=== PATIENT | male | born 1960 | race Caucasian/White ===

== ENCOUNTER 2021-06-09 10:03 | Emergency (ER) | payer OTHER, SELFPAY ==
[2021-06-09 10:39] VITALS: BP 146/81; PULSE 65; RESP 18; TEMP 36.5; O2SAT 98
--- NOTE | 2021-06-09 11:17 | ED.GENADULT ---
HPI - General Adult General Chief complaint: Ear Stated complaint: discomfort and swelling lt side of face Time Seen by Provider: 06/09/21 11:17 Source: patient, RN notes reviewed and old records reviewed Mode of arrival: ambulatory Limitations: no limitations History of Present Illness HPI narrative: 60-year-old male presents to [facility] with complaints of swelling and some redness to the left side of his face in front of his left ear down to edge of jaw and to tonsillar lymph node. Patient denies any pain to his left ear or any dental pain. Patient has swelling noted orally top of the posterior molar gum region and surrounding tissue down to bottom most posterior molar with no drainage noted, no Marcela angina or any difficulty with swallowing or breathing noted. Patient has no obvious dental carries in his left molars but has some crowns on top back posterior molars. Onset (ago): day(s) (1) Location: face and left Related Data Allergies Allergy/AdvReac Type Severity Reaction Status Date / Time No Known Allergies Allergy Verified 06/09/21 10:49 Review of Systems Review of Systems: CONSTITUTIONAL: Denies fever, chills, or sweats. EYES: Denies visual changes, redness, or discharge. ENT: Denies rhinorrhea, congestion, sore throat, or otalgia, swelling to the left side of his face in front of his left ear down to tonsillar lymph node CARDIOVASCULAR: Denies chest pain, palpitations, or edema. RESPIRATORY: Denies cough or dyspnea. GASTROINTESTINAL: Denies abdominal pain, nausea, vomiting, or diarrhea. GENITOURINARY: Denies dysuria or hematuria. SKIN: Denies rash or itching. MUSCULOSKELETAL: Denies back pain, joint pain, or myalgia. NEUROLOGIC: Denies headache, numbness, or weakness. PSYCHIATRIC: Denies anxiety or depression. All systems reviewed & are unremarkable except as noted in HPI and below PMFSH Surgical History Surgical History (Updated 06/09/21 @ 11:53 by Zoraida Jessica NP) H/O vasectomy Family History Family History (Updated 06/09/21 @ 18:46 by Zoraida Jessica NP) Father Bladder cancer Mother Rheumatoid arthritis Sibling Hypertension Social History Social History (Updated 06/09/21 @ 17:41 by Zoraida Jessica NP) Smoking status: Never smoker Alcohol intake: current Alcohol use details: social Substance use: never Living arrangements: with family Gender identity (if verbalized by the patient): Male Comments At time of signature, agree with nursing past medical, surgical, social and family history. There is no relevant family history pertinent to the presenting complaint Exam Narrative: GENERAL: Well-appearing, well-nourished, and in no acute distress. HEAD: Normocephalic, atraumatic. EYES: PERRLA and EOMI. ENT: Nares clear, no rhinorrhea or epistaxis. Mucous membranes moist.TM's normal with good light reflex, throat is pink uvula is midline no tonsil enlargement noted swelling is present to the back of left side of mouth above lateral most posterior molars down to the tissue by lateral posterior bottom molar with swelling. Patient has left facial swelling and redness in front of left ear down to tonsillar lymph node. no marcela angina noted or any trismus. NECK: Supple.lymphadenopathy left tonsillar lymph node CHEST: Clear to auscultation. No respiratory distress. HEART: Regular rate and rhythm. No murmur heard. Normal peripheral pulses. ABDOMEN: Soft, nontender, nondistended, normal active bowel sounds. EXTREMITIES: Normal range of motion. No edema. SKIN: Warm, dry, no rash. NEURO: No focal deficits. Alert and oriented x3. Course Course Level of Care: Express Care Visit Vital Signs Vital signs: Vital Signs Temperature 36.5 C 06/09/21 10:39 Pulse Rate 65 06/09/21 10:39 Respiratory Rate 18 06/09/21 10:39 Blood Pressure 146/81 H 06/09/21 10:39 Pulse Oximetry 98 06/09/21 10:39 Temperature 36.5 C 06/09/21 10:39 Pulse Rate 65 06/09/21 10:39 Respira
== END 2021-06-09 11:44 | disposition home or self-care (01) ==
PROVIDERS: Emergency Provider Registered Nurse; PCP Family Medicine
DX: K04.7 Periapical abscess without sinus (principal); Z98.52 Vasectomy status
CPT/HCPCS: 99213; G0463

== ENCOUNTER → 2022-05-27 08:15 | Outpatient (CLI) | payer OTHER, SELFPAY ==
--- NOTE | ~2022-05-27 | MR_ITS ---
MRI of the right shoulder Technique: Axial proton-density fat-sat images, coronal proton density fat-sat and T2 fat-sat images, and sagittal T1-weighted and T2 fat-sat images were acquired. Clinical History: Pain Findings: There is moderate AC joint degenerative change, with prominent marrow edema about the joint . Some small subacromial spur present. Coracoclavicular, coracoacromial, and coracohumeral ligaments are intact. Supraspinatus and infraspinatus tendons are intact, without partial or full-thickness tear. Subscapul doris tendon is intact. Tendon of the long head of the biceps is intact. No definite labral tear identified. Probable sublabral foramen present at the anterosuperior portion. There is probable moderate chondromalacia of the humeral head. Inferior glenohumeral ligament is inta ct. No joint effusion present at the glenohumeral joint. Minimal fluid present in the subacromial/sub deltoid bursa. No muscle atrophy or edema. Impression: Moderate AC joint degenerative change with prominent presumed reactive marrow edema about the joint. No rotator cuff or labral tear evident. Moderate chondromalacia of the humeral head. Reviewed, dictated and finalized at [facility]. [employer] Impression: Moderate AC joint degenerative change with prominent presumed reactive marrow e lamar about the joint. No rotator cuff or labral tear evident. Moderate chondromalacia of the humeral head.
== END ==
PROVIDERS: PCP Family Medicine; Visit Provider Orthopaedic Surgery
DX: M25.511 Pain in right shoulder (principal); M79.89 Other specified soft tissue disorders; M94.211 Chondromalacia, right shoulder
CPT/HCPCS: 73221